=== PATIENT | male | born 1985 | race Caucasian/White ===

== ENCOUNTER 2017-06-02 20:46 | Emergency (ER) | payer OTHER ==
[2017-06-02 20:58] VITALS: BP 126/88
[2017-06-02] MEDS ORDERED: CYCLOBENZAPRINE 10 MG Prepack 2 PO PRN (21:22)
[2017-06-02] MEDS ORDERED: HYDROcod/ACET 5/325 Prepack 6 PO STA (21:22)
[2017-06-02] MEDS ORDERED: IBUPROFEN 800 MG TABLET PO STA (21:22)
--- NOTE | 2017-06-02 21:25 | ED Physician Documentation ---
PD HPI BACK INJURY - Stated complaint Stated Complaint: BACK PX - History obtained from History obtained from: Patient - History of Present Illness Location: Other ("I threw my back out weedeating at home tonight." About 3 hrs ago, felt a pull and now with nonradiating LBP. Worse with sitting and twisting. No weak/numb/tingling legs/groin.) Review of Systems Constitutional: denies: Fever, Chills Nose: denies: Rhinorrhea / runny nose, Congestion Cardiac: denies: Chest pain / pressure, Palpitations Respiratory: denies: Dyspnea, Cough PD PAST MEDICAL HISTORY - Present Medications Home Medications: Ambulatory Orders Medication Instructions Recorded Confirmed Cyclobenzaprine [Flexeril] 10 mg PO TID PRN #20 tablet 06/02/17 HYDROcod/ACETAM 5/325 [[place] 5/325] 1 - 2 ea PO Q6H PRN #15 tablet 06/02/17 Ibuprofen [Motrin] 800 mg PO Q8H PRN #30 tablet 06/02/17 - Allergies Allergies/Adverse Reactions: Allergies Allergy/AdvReac Type Severity Reaction Status Date / Time iron AdvReac Unknown Verified 06/02/17 20:58 PD ED PE NORMAL - Vitals Vital signs reviewed: Yes - General General: Alert and oriented X 3, Other (winces with motion) - Abdomen Abdomen: Soft, Non tender - Back Back: No spinal TTP, Other (TTP paralumbar msk) - Extremities Extremities: Other (The patient has equal and normal Achilles and patellar reflexes bilaterally. Normal sensation in all areas of the legs. Patient denies saddle anesthesia. Normal strength in flexion-extension at the ankles, knees, and flexion of the hips.) - Neuro Neuro: Alert and oriented X 3, Normal speech - Psych Psych: Normal mood, Normal affect Results - Vitals Vitals: Vital Signs - 24 hr 06/02/17 20:54 Temperature 36.8 C Heart Rate 77 Respiratory 17 Rate Blood Pressure 126/88 H O2 Saturation 100 Oxygen O2 Source Room air Departure - Departure Disposition: 01 Home, Self Care Clinical Impression: Muscle spasm of back Condition: Good Record reviewed to determine appropriate education?: Yes Instructions: ED Low Back Pain Injury Prescriptions: Cyclobenzaprine [Flexeril] 10 mg PO TID PRN #20 tablet PRN Reason: Pain Ibuprofen [Motrin] 800 mg PO Q8H PRN #30 tablet PRN Reason: PAIN &/OR FEVER HYDROcod/ACETAM 5/325 [[place] 5/325] 1 - 2 ea PO Q6H PRN #15 tablet PRN Reason: Pain Comments: Call your doctor to arrange a follow-up appointment, make the next available appointment. In the interim, return anytime if worse or if new symptoms develop. Your blood pressure was elevated today on check into the emergency department. This does not mean that you have hypertension, it is a common phenomenon to come to the emergency department and have elevated blood pressure. I recommend that she see her primary care physician within the week to have it rechecked when you are feeling better. Do not drink or drive while taking narcotic pain medication. Note that many narcotic pain relievers also contain Tylenol/acetaminophen. Please ensure that your total dose of acetaminophen from all sources does not exceed 3 g (3000 mg) per day. You may get constipated while on this medication. Take a stool softener such as Colace twice a day while you are on it. Also add an [id number] laxative such as senna or MiraLAX on any day that you do not have a bowel movement. If you received a narcotic pain medication or sedative while in the emergency department, do not drive for the next 24 hours. Forms: Activity restrictions
[2017-06-02] MEDS ORDERED: IBUPROFEN 800 MG TABLET PO ONE (21:31)
[2017-06-02] MEDS ORDERED: HYDROcod/ACET 5/325 Prepack 6 PO ONE (21:31)
[2017-06-02] MEDS ORDERED: CYCLOBENZAPRINE 10 MG Prepack 2 PO ONE (21:31)
== END 2017-06-02 21:39 | disposition home or self-care (01) ==
LOC: ED 20:46
DX: M62.830 Muscle spasm of back (principal); R03.0 Elevated blood-pressure reading, without diagnosis of hypertension
CPT/HCPCS: 99283; A9270

== ENCOUNTER 2017-09-29 09:47 | Emergency (ER) | payer OTHER ==
[2017-09-29 10:06] VITALS: BP 107/67
--- NOTE | 2017-09-29 10:37 | ED Physician Documentation ---
History of Present Illness - Stated complaint Stated Complaint: LEFT ARM INJ/GLF - Chief complaint Chief Complaint: Trauma Ext - Additonal information Additional information: hx from pt 32 male slipped and fell forward onto R FA last night pain and swelling distal radius no other injury still hurts today Review of Systems Musculoskeletal: reports: Extremity pain, Extremity swelling Neurologic: denies: Head injury PD PAST MEDICAL HISTORY - Past Medical History Past Medical History: No Cardiovascular: None Respiratory: None Endocrine/Autoimmune: None GI: None : None HEENT: None Psych: None Musculoskeletal: None Derm: None Other Past Medical History: Back pain - Past Surgical History Past Surgical History: No - Present Medications Home Medications: Ambulatory Orders Medication Instructions Recorded Confirmed Cyclobenzaprine [Flexeril] 10 mg PO TID PRN #20 tablet 06/02/17 09/29/17 HYDROcod/ACETAM 5/325 [[place] 5/325] 1 - 2 ea PO Q6H PRN #15 tablet 06/02/1711/15 Ibuprofen [Motrin] 800 mg PO Q8H PRN #30 tablet 06/02/17 09/29/17 - Allergies Allergies/Adverse Reactions: Allergies Allergy/AdvReac Type Severity Reaction Status Date / Time iron AdvReac Unknown Verified 09/29/17 10:10 - Social History Does the pt smoke?: Yes Smoking Status: Current every day smoker Does the pt drink ETOH?: Yes ETOH Use: Beer Does the pt have substance abuse?: No - Immunizations Immunizations are current?: Yes PD ED PE NORMAL - Vitals Vital signs reviewed: Yes - Extremities Extremities: Other (R FA focal TTP and swelling to distal R radius approx 3 cm proximal to wrist, no wrist pain, MSV intact) Results - Vitals Vitals: Vital Signs - 24 hr 09/29/17 10:02 Temperature 36.9 C Heart Rate 79 Respiratory 18 Rate Blood Pressure 107/67 O2 Saturation 100 Oxygen O2 Source Room air - Rads (name of study) R FA Radiology: See rad report (neg) Departure - Departure Disposition: 01 Home, Self Care Clinical Impression: Contusion of arm, left Qualifiers: Encounter type: initial encounter Qualified Code(s): S40.022A - Contusion of left upper arm, initial encounter Condition: Good Instructions: ED Contusion Upper Ext Follow-Up: DYLON,REZNER H [Primary Care Provider] - Comments: Thankfully the xray does not show a fracture. Wear the SYDNI wrap and apply ice for 20 min at a time to decrease swelling And wear the splint for support at work Motrin and tylenol as needed for pain If still very painful in 2 weeks, please see your PMD for repeat xrays - occasionally a hairline crack cannot be seen on initial xrays but can be seen on xray as the injury heals Forms: Activity restrictions
--- NOTE | 2017-09-29 11:01 | XRAY Preliminary Report ---
Exam: XR FOREARM LT IMPRESSION: Negative left forearm radiography. [facility] SITE ID: [id number]
--- NOTE | 2017-09-29 11:04 | XRAY Report ---
EXAM: LEFT FOREARM RADIOGRAPHY EXAM DATE: 09/29/2017 10:32 AM. CLINICAL HISTORY: Pain. COMPARISON: None. TECHNIQUE: 2 views. FINDINGS: Bones: No fractures or bone lesions. Joints: No effusions or subluxations in the visualized wrist or elbow joints. Soft Tissues: No soft tissue swelling. IMPRESSION: Negative left forearm radiography. [facility] Referring Provider Line: [phone] SITE ID: [id number]
== END 2017-09-29 11:37 | disposition home or self-care (01) ==
LOC: ED 09:47
DX: S50.11XA Contusion of right forearm, initial encounter (principal); W01.0XXA Fall on same level from slipping, tripping and stumbling without subsequent striking against object, initial encounter; F17.200 Nicotine dependence, unspecified, uncomplicated
CPT/HCPCS: 99283

== ENCOUNTER 2019-12-29 21:16 | Emergency (ER) | payer OTHER ==
[2019-12-29 21:29] VITALS: BP 145/99
[2019-12-29 21:46] LABS: BASOPHILS # (AUTO) 0.1 10^3/uL (0.0-0.1); BASOPHILS % (AUTO) 1.2 %; EOSINOPHILS # (AUTO) 0.1 10^3/uL (0.0-0.7); EOSINOPHILS % (AUTO) 0.5 %; HGB - HEMOGLOBIN 12.2 g/dL (14.0-18.0); LYMPHOCYTES # (AUTO) 1.2 10^3/uL (1.5-3.5); MEAN CORPUSCULAR HEMOGLOBIN 20.9 pg (27.0-31.0); MEAN CORPUSCULAR HGB CONC 31.6 g/dL (32.0-36.0); MEAN CORPUSCULAR VOLUME 66.2 fL (80.0-94.0); MEAN PLATELET VOLUME 8.3 fL (7.4-11.4); MONOCYTES # (AUTO) 1.5 10^3/uL (0.0-1.0); MONOCYTES % (AUTO) 14.9 %; NEUTROPHILS # (AUTO) 6.9 10^3/uL (1.5-6.6); NEUTROPHILS % (AUTO) 70.8 %; PLT - PLATELET COUNT 249 10^3/uL (130-450); RED BLOOD COUNT 5.83 10^6/uL (4.70-6.10); RED CELL DISTRIBUTION WIDTH 17.4 % (12.0-15.0); WHITE BLOOD COUNT 9.7 x10^3/uL (4.8-10.8)
[2019-12-29 22:07] LABS: ALBUMIN/GLOBULIN RATIO 1.5 (1.0-2.2); BILIRUBIN,TOTAL 1.6 mg/dL (0.2-1.0); CALCIUM 9.3 mg/dL (8.5-10.3); CREATININE 0.8 mg/dL (0.6-1.2); TOTAL PROTEIN 8.3 g/dL (6.7-8.2)
[2019-12-29 22:19] LABS: PLATELET ESTIMATE, MANUAL NORMAL (130-450,000) (NORMAL); PLATELET MORPHOLOGY NORMAL APPEARANCE (NORMAL)
[2019-12-29] MEDS ORDERED: ONDANSETRON ODT 4 MG TABLET TL STA (22:53)
[2019-12-29] MEDS ORDERED: PANTOPRAZOLE 40 MG TABLET PO STA (22:53)
== END 2019-12-29 23:05 | disposition left against medical advice (07) ==
LOC: ED 21:16
DX: Z53.21 Procedure and treatment not carried out due to patient leaving prior to being seen by health care provider (principal)
CPT/HCPCS: 36415; 80053; 83690; 85025

== ENCOUNTER 2020-07-19 06:58 | Emergency (ER) | payer OTHER ==
--- NOTE | 2020-07-19 07:42 | ED Physician Documentation ---
PD HPI ALTERED MENTAL STATUS - Stated complaint Stated Complaint: TREMORS/STUTTERING - Chief complaint Chief Complaint: General - History obtained from History obtained from: Patient, Family - History of Present Illness Timing - onset: Yesterday Timing - details: Gradual onset, Still present (increased today) Quality / character: Memory Loss (mild forgetful), Other (mostly stuttering of speech and having frequent irregular timing of general body muscle spasticity/twitching). No: Confused, Disoriented Associated symptoms: General weakness. No: Fever, Headache, Stiff neck, Dyspnea, Cough, NVD, Seizure activity Contributing factors: Intoxicated (Next a pint of liquor daily and has done so since age 20. He had one sober. On a detox program for 28 days and started drinking the following day. This was about a year ago. He denies wanting inpatient detox.) Basline status: Alert and oriented X 3, Ambulatory Similar symptoms before: Has not had sx before Recently seen: Not recently seen Review of Systems Constitutional: denies: Fever, Chills Nose: denies: Rhinorrhea / runny nose, Congestion Throat: denies: Sore throat Cardiac: denies: Chest pain / pressure Respiratory: denies: Dyspnea, Cough GI: denies: Abdominal Pain, Nausea, Vomiting, Diarrhea Neurologic: reports: Other (Stuttering speech and having difficulty with some words at times. Content is normal. Is also having general muscle spasms). denies: Focal weakness, Numbness, Confused (He does feel little bit forgetful about recent activity.), Altered mental status, Headache, Head injury, LOC PD PAST MEDICAL HISTORY - Past Medical History Cardiovascular: None Respiratory: Asthma Neuro: None Endocrine/Autoimmune: None GI: None : None HEENT: None Psych: None Musculoskeletal: None Derm: None - Past Surgical History Past Surgical History: No - Present Medications Home Medications: Ambulatory Orders Medication Instructions Recorded Confirmed PHENobarbitaL [Phenobarbital] 30 mg PO BID #12 tablet 07/19/20 Thiamine HCl 100 mg PO DAILY #20 tablet 07/19/20 chlordiazePOXIDE [Librium] 25 mg PO Q6H PRN #25 capsule 07/19/20 - Allergies Allergies/Adverse Reactions: Allergies Allergy/AdvReac Type Severity Reaction Status Date / Time iron AdvReac Unknown Verified 07/19/20 07:14 - Social History Does the pt smoke?: Yes Smoking Status: Current every day smoker Does the pt drink ETOH?: Yes ETOH Use: Beer, Liquor Does the pt have substance abuse?: No - Immunizations Immunizations are current?: Yes PD ED PE NORMAL - Vitals Vital signs reviewed: Yes - General General: Alert and oriented X 3, Well developed/nourished, Other (Seems frustrated at the stuttering. Content of speech is normal. His speech pattern sounds like a true stuttering.) - HEENT HEENT: Atraumatic, Moist mucous membranes, Pharynx benign - Neck Neck: Supple, no meningeal sign, No adenopathy - Cardiac Cardiac: RRR, No murmur - Respiratory Respiratory: Clear bilaterally - Abdomen Abdomen: Normal bowel sounds, Soft, Non tender, Non distended - Back Back: No CVA TTP - Derm Derm: Normal color, Warm and dry - Extremities Extremities: No edema, No calf tenderness / cord - Neuro Neuro: Alert and oriented X 3, butcher all round 2-12 intact, No motor deficit, No sensory deficit, Normal speech, Other (Irregularly timed but frequent general muscle spasticity. It does dampen some with intention.) Eye Opening: Spontaneous Motor: Obeys Commands Verbal: Oriented GCS Score: 15 Results - Vitals Vitals: Vital Signs - 24 hr 07/19/20 07/19/20 07/19/20 07:12 07:22 08:37 Temperature 37.0 C 37.0 C Heart Rate 100 103 H 93 Respiratory 18 17 24 Rate Blood Pressure 139/100 H 146/111 H 127/87 H O2 Saturation 95 99 96 07/19/20 07/19/20 09:54 10:52 Temperature 36.9 C 37.0 C Heart Rate 99 97 Respiratory 18 21 Rate Blood Pressure 122/89 H 119/77 O2 Saturation 96 98 Oxygen O2 Source Room air - Labs Labs: Laboratory Tests 07/19/20 07/19/20 07/19/20 07:40 07:40 08:05 WBC 4.7 L RBC 6.12 H Hgb 13.0 L Hct 39.8 L MCV 65.0 L MCH 21.2 L MCHC 32.7 RDW 17.0 H Plt Count 157 MPV 9.4 Neut # (Auto) Not Reportable Lymph # (Auto) Not Reportable [place] # (Auto) Not Reportable Eos # (Auto) Not Reportable Baso # (Auto) Not Reportable Absolute Nucleated RBC Not Reportable Total Counted 100 Band Neuts % (Manual) 1 Abnorm Lymph % (Manual) 0 Nucleated RBC % Not Reportable Neutrophils # (Manual) 2.7 Lymphocytes # (Manual) 1.2 L Monocytes # (Manual) 0.5 Eosinophils # (Manual) 0.1 Basophils # (Manual) 0.1 Differential Comment MANUAL DIFFERENTIAL Platelet Estimate NORMAL (130-450,000) Platelet Morphology NORMAL APPEARANCE RBC Morph Micro Appear 1+ ANISOCYTOSIS Sodium 138 Potassium 4.2 Chloride 96 L Carbon Dioxide 28 Anion Gap 14.0 H BUN 11 Creatinine 0.9 Estimated GFR (MDRD) 96 Glucose 106 H Calcium 9.3 Magnesium Iron Total Bilirubin 1.6 H AST 239 H ALT 131 H Alkaline Phosphatase 86 Ammonia Total Protein 8.6 H Albumin 5.1 Globulin 3.5 Albumin/Globulin Ratio 1.5 Lipase 49 Vitamin B12 TSH Urine Color DARK YELLOW Urine Clarity CLEAR Urine pH Ur Specific [place] Urine Protein Urine Glucose (UA) NEGATIVE Urine Ketones Urine Occult Blood Urine Nitrite NEGATIVE Urine Bilirubin NEGATIVE Urine Urobilinogen Ur Leukocyte Esterase NEGATIVE Urine RBC None Seen Urine WBC 0-3 Ur Squamous Epith Cells RARE Squamous Urine Bacteria Rare Urine Mucus Moderate Strands Ur Microscopic Review INDICATED Urine Culture Comments NOT INDICATED Urine Opiates Screen NEGATIVE Ur Oxycodone Screen NEGATIVE Urine Methadone Screen NEGATIVE Ur Propoxyphene Screen NEGATIVE Ur Barbiturates Screen NEGATIVE Ur Tricyclics Screen NEGATIVE Ur Phencyclidine Scrn NEGATIVE Ur Amphetamine Screen NEGATIVE U Methamphetamines Scrn NEGATIVE U Benzodiazepines Scrn NEGATIVE Urine Cocaine Screen NEGATIVE U Cannabinoids Screen NEGATIVE Ethyl Alcohol 07/19/20 07/19/20 07/19/20 08:09 08:09 08:09 WBC RBC Hgb Hct MCV MCH MCHC RDW Plt Count MPV Neut # (Auto) Lymph # (Auto) [place] # (Auto) Eos # (Auto) Baso # (Auto) Absolute Nucleated RBC Total Counted Band Neuts % (Manual) Abnorm Lymph % (Manual) Nucleated RBC % Neutrophils # (Manual) Lymphocytes # (Manual) Monocytes # (Manual) Eosinophils # (Manual) Basophils # (Manual) Differential Comment Platelet Estimate Platelet Morphology RBC Morph Micro Appear Sodium Potassium Chloride Carbon Dioxide Anion Gap BUN Creatinine Estimated GFR (MDRD) Glucose Calcium Magnesium 2.2 Iron Total Bilirubin AST ALT Alkaline Phosphatase Ammonia 30.1 Total Protein Albumin Globulin Albumin/Globulin Ratio Lipase Vitamin B12 818 TSH 1.98 Urine Color Urine Clarity Urine pH Ur Specific [place] Urine Protein Urine Glucose (UA) Urine Ketones Urine Occult Blood Urine Nitrite Urine Bilirubin Urine Urobilinogen Ur Leukocyte Esterase Urine RBC Urine WBC Ur Squamous Epith Cells Urine Bacteria Urine Mucus Ur Microscopic Review Urine Culture Comments Urine Opiates Screen Ur Oxycodone Screen Urine Methadone Screen Ur Propoxyphene Screen Ur Barbiturates Screen Ur Tricyclics Screen Ur Phencyclidine Scrn Ur Amphetamine Screen U Methamphetamines Scrn U Benzodiazepines Scrn Urine Cocaine Screen U Cannabinoids Screen Ethyl Alcohol 293.7 07/19/20 08:09 WBC RBC Hgb Hct MCV MCH MCHC RDW Plt Count MPV Neut # (Auto) Lymph # (Auto) [place] # (Auto) Eos # (Auto) Baso # (Auto) Absolute Nucleated RBC Total Counted Band Neuts % (Manual) Abnorm Lymph % (Manual) Nucleated RBC % Neutrophils # (Manual) Lymphocytes # (Manual) Monocytes # (Manual) Eosinophils # (Manual) Basophils # (Manual) Differential Comment Platelet Estimate Platelet Morphology RBC Morph Micro Appear Sodium Potassium Chloride Carbon Dioxide Anion Gap BUN Creatinine Estimated GFR (MDRD) Glucose Calcium Magnesium Iron 263 H Total Bilirubin AST ALT Alkaline Phosphatase Ammonia Total Protein Albumin Globulin Albumin/Globulin Ratio Lipase Vitamin B12 TSH Urine Color Urine Clarity Urine pH Ur Specific [place] Urine Protein Urine Glucose (UA) Urine Ketones Urine Occult Blood Urine Nitrite Urine Bilirubin Urine Urobilinogen Ur Leukocyte Esterase Urine RBC Urine WBC Ur Squamous Epith Cells Urine Bacteria Urine Mucus Ur Microscopic Review Urine Culture Comments Urine Opiates Screen Ur Oxycodone Screen Urine Methadone Screen Ur Propoxyphene Screen Ur Barbiturates Screen Ur Tricyclics Screen Ur Phencyclidine Scrn Ur Amphetamine Screen U Methamphetamines Scrn U Benzodiazepines Scrn Urine Cocaine Screen U Cannabinoids Screen Ethyl Alcohol - Rads (name of study) head CT Radiology: Prelim report reviewed (no acute process), See rad report PD MEDICAL DECISION MAKING - ED course Complexity details: reviewed results, re-evaluated patient (improved symptoms.), considered differential, d/w patient ED course: And this do not really fit with an encephalopathy per se. We can get a CT scan to evaluate for bleeding or mass-effect. I presume metabolic disorder related to his chronic alcoholism. Up-to-date did reference 1 particular disorder related to chronic alcohol that could be some demyelination in the corpus callosum that would give spasticity trouble speaking and altered mentation. Treatment sounds like stopping the alcohol and supportive treatment. I talked with the patient about trying to find detox program. He states he does not want a detox program at this time. He did not feel that that would be helpful right now. He would like medication to help with withdrawal. His symptoms were actually quite improved with IV fluids and thiamine and magnesium. He still had some occasional muscle spasms. He is talking clearly. Departure - Departure Disposition: 01 Home, Self Care Clinical Impression: Muscle spasticity, Alcoholism, Speaking difficulty Alcohol intoxication Qualifiers: Complication of substance-induced condition: with unspecified complication Qualified Code(s): F10.929 - Alcohol use, unspecified with intoxication, unspecified Condition: Stable Record reviewed to determine appropriate education?: Yes Instructions: ED Alcohol Abuse Follow-Up: [facility] [Provider Group] [facility] [Provider Group] [facility] [Provider Group] Prescriptions: chlordiazePOXIDE [Librium] 25 mg PO Q6H PRN #25 capsule PRN Reason: Alcohol Withdrawal PHENobarbitaL [Phenobarbital] 30 mg PO BID #12 tablet Thiamine HCl 100 mg PO DAILY #20 tablet Comments: Stay well-hydrated. Try eating regular nutritious meals regularly. Avoid alcohol. To diminish and avoid the withdrawal symptoms, I prescribed a tapering dose of phenobarbital to take over the next 8 days. Additionally you can use Librium if needed for withdrawal symptoms. Your symptoms today are likely related to chronic alcohol use and its effect on areas of the brain. Particular syndromes can related to demyelination in the brain (an effect of chronic alcohol. are Otherwise Thiamine deficiency can be causing your symptoms, in addition to general nutritional problems. The main treatment will be to stop alcohol use and have good general nutrition. I know that will be a difficult thing. Seek help with AA meetings and social work. The [place] system likely has good treatment programs as well, contact your primary care with them for subsequent follow-up. Alternatively I [place] clinic [place]. Add a thiamine supplement daily and also general multivitamin may be useful as well. Discharge Date/Time: 07/19/20 11:06
[2020-07-19] MEDS ORDERED: SODIUM CHLORIDE 0.9% 1,000 ML IV STA (08:01)
[2020-07-19] MEDS ORDERED: LORazepam 2 MG/ML VIAL IVP STA (08:01)
[2020-07-19] MEDS ORDERED: MAGNESIUM SULFATE 2 GRAM 2 GM/50 ML BAG IV ONE (08:02)
[2020-07-19] MEDS ORDERED: THIAMINE INJ 100 MG in SODIUM CHLORIDE 0.9% 50 ML IV STA ×2 (08:03→09:59)
[2020-07-19 08:04] LABS: BASOPHILS % (AUTO) 1.7 %; EOSINOPHILS % (AUTO) 2.1 %; LYMPHOCYTES % (AUTO) 30.2 %; MEAN CORPUSCULAR HEMOGLOBIN 21.2 pg (27.0-31.0); MEAN CORPUSCULAR HGB CONC 32.7 g/dL (32.0-36.0); MEAN PLATELET VOLUME 9.4 fL (7.4-11.4); MONOCYTES % (AUTO) 13.2 %; NEUTROPHILS % (AUTO) 52.4 %; PLT - PLATELET COUNT 157 10^3/uL (130-450); RED BLOOD COUNT 6.12 10^6/uL (4.70-6.10); WHITE BLOOD COUNT 4.7 x10^3/uL (4.8-10.8)
[2020-07-19 08:08] LABS: ABNORMAL LYMPHS % (MANUAL) 0 %
[2020-07-19 08:12] LABS: ALBUMIN 5.1 g/dL (3.2-5.5); ALBUMIN/GLOBULIN RATIO 1.5 (1.0-2.2); BILIRUBIN,TOTAL 1.6 mg/dL (0.2-1.0); CALCIUM 9.3 mg/dL (8.5-10.3); CREATININE 0.9 mg/dL (0.6-1.2); TOTAL PROTEIN 8.6 g/dL (6.7-8.2)
[2020-07-19 08:14] LABS: MUDS CUTOFF CONCENTRATIONS CUTOFF CONC BELOW:
[2020-07-19 08:25] LABS: MAGNESIUM 2.2 mg/dL (1.7-2.8)
[2020-07-19 08:26] LABS: GLUCOSE, URINE (UA) NEGATIVE (NEGATIVE); LEUKOCYTE ESTERASE, URINE NEGATIVE (NEGATIVE); NITRITE,URINE NEGATIVE (NEGATIVE)
[2020-07-19 08:27] LABS: CLARITY,URINE CLEAR (CLEAR)
[2020-07-19 08:28] LABS: BILIRUBIN,URINE NEGATIVE (NEGATIVE); ICTOTEST,URINE NEGATIVE
[2020-07-19 08:41] LABS: AMPHETAMINE SCREEN,URINE NEGATIVE (NEGATIVE); BACTERIA,URINE Rare /HPF (None Seen); BENZODIAZEPINES SCREEN, URINE NEGATIVE (NEGATIVE); COCAINE SCREEN URINE NEGATIVE (NEGATIVE); METHADONE SCREEN, URINE NEGATIVE (NEGATIVE); METHAMPHETAMINES SCREEN, URINE NEGATIVE (NEGATIVE); MUCUS,URINE Moderate Strands; OPIATE SCREEN, URINE NEGATIVE (NEGATIVE); OXYCODONE SCREEN, URINE NEGATIVE (NEGATIVE); PROPOXYPHENE SCREEN, URINE NEGATIVE (NEGATIVE); RBC,URINE None Seen /HPF (0-5); SQUAMOUS EPITHELIAL CELL,UR RARE Squamous (<= Few); TRICYCLIC ANTIDEPRESSANT,URINE NEGATIVE (NEGATIVE)
[2020-07-19 08:45] LABS: THYROID STIMULATING HORMONE 1.98 uIU/mL (0.34-5.60)
[2020-07-19 08:51] LABS: BAND NEUTROPHILS % (MANUAL) 1 %; BASOPHILS # (MANUAL) 0.1 10^3/uL (0-0.1); BASOPHILS % (MANUAL) 3 %; DIFFERENTIAL COMMENT MANUAL DIFFERENTIAL; EOSINOPHILS # (MANUAL) 0.1 10^3/uL (0-0.7); LYMPHOCYTES # (MANUAL) 1.2 10^3/uL (1.5-3.5); LYMPHOCYTES % (MANUAL) 26 %; MONOCYTES # (MANUAL) 0.5 10^3/uL (0.0-1.0); PLATELET ESTIMATE, MANUAL NORMAL (130-450,000) (NORMAL); PLATELET MORPHOLOGY NORMAL APPEARANCE (NORMAL)
--- NOTE | 2020-07-19 09:11 | CT Report ---
PROCEDURE: HEAD WO INDICATIONS: stuttering speech and body spasms TECHNIQUE: Noncontrast 4.5 mm thick angled axial sections acquired from the foramen magnum to the vertex. For r adiation dose reduction, the following was used: automated exposure control, adjustment of mA and/or kV according to patient size. COMPARISON: None. FINDINGS: Image quality: Diagnostic, with note made of motion artifact. CSF spaces: Basal cisterns are patent. No extra-axial fluid collections. Ventricles are normal in size and shape. Brain: No midline shift. No intracranial masses or hemorrhage. [place]-white matter interface is norm al. Skull and face: Calvarium and visualized facial bones are intact, without suspicious lesions. Sinuses: Visualized sinuses and mastoids are clear. IMPRESSION: Unremarkable intracranial study, without an imaging explanation found for the patient's presenting history. If it would be helpful for clinical management decision making, please consider a dedicated brain MRI for further evaluation (assuming that there is no contraindication). Reviewed by: Rm Alvarado MD on 07/19/2020 8:10 AM VALORIE Approved by: Rm Alvarado MD on 07/19/2020 8:10 AM VALORIE Station ID: [id number]
[2020-07-19] MEDS ORDERED: PHENobarbital 65 MG/ML VIAL IV STA (09:59)
[2020-07-19 10:54] VITALS: BP 119/77
== END 2020-07-19 11:06 | disposition home or self-care (01) ==
LOC: ED 06:58
DX: M62.838 Other muscle spasm (principal); F98.5 Adult onset fluency disorder; F10.929 Alcohol use, unspecified with intoxication, unspecified; F17.200 Nicotine dependence, unspecified, uncomplicated
CPT/HCPCS: 36415; 70450; 80306; 80320; 81001; 82140; 82607; 83540; 83690; 83735; 96365; 96368; 96375; 99284; J2060; J3411; J7040; 80053; 81003; 84425; 84443; 85025; 87086

== ENCOUNTER 2021-03-20 10:48 | Emergency (ER) | payer OTHER ==
[2021-03-20 11:26] LABS: BILIRUBIN,URINE NEGATIVE (NEGATIVE); GLUCOSE, URINE (UA) NEGATIVE (NEGATIVE); KETONES,URINE (UA) NEGATIVE (NEGATIVE); LEUKOCYTE ESTERASE, URINE NEGATIVE (NEGATIVE); NITRITE,URINE NEGATIVE (NEGATIVE); OCCULT BLOOD,URINE NEGATIVE (NEGATIVE); PROTEIN,URINE TRACE mg/dL (NEGATIVE); UROBILINOGEN,URINE 1 (NORMAL) E.U./dL (NORMAL)
[2021-03-20 11:27] LABS: CLARITY,URINE CLEAR (CLEAR)
[2021-03-20 11:46] LABS: BASOPHILS # (AUTO) 0.1 10^3/uL (0.0-0.1); BASOPHILS % (AUTO) 0.8 %; EOSINOPHILS # (AUTO) 0.1 10^3/uL (0.0-0.7); EOSINOPHILS % (AUTO) 2.3 %; HCT - HEMATOCRIT 40.6 % (42.0-52.0); HGB - HEMOGLOBIN 12.5 g/dL (14.0-18.0); LYMPHOCYTES # (AUTO) 1.3 10^3/uL (1.5-3.5); MEAN CORPUSCULAR HEMOGLOBIN 19.7 pg (27.0-31.0); MEAN CORPUSCULAR HGB CONC 30.8 g/dL (32.0-36.0); MEAN CORPUSCULAR VOLUME 63.9 fL (80.0-94.0); MEAN PLATELET VOLUME 8.4 fL (7.4-11.4); MONOCYTES # (AUTO) 0.6 10^3/uL (0.0-1.0); MONOCYTES % (AUTO) 10.2 %; NEUTROPHILS # (AUTO) 4.1 10^3/uL (1.5-6.6); NEUTROPHILS % (AUTO) 65.4 %; PLT - PLATELET COUNT 210 10^3/uL (130-450); RED BLOOD COUNT 6.35 10^6/uL (4.70-6.10); RED CELL DISTRIBUTION WIDTH 18.3 % (12.0-15.0); WHITE BLOOD COUNT 6.2 x10^3/uL (4.8-10.8)
[2021-03-20 11:56] LABS: ALBUMIN 4.9 g/dL (3.2-5.5); ALBUMIN/GLOBULIN RATIO 1.4 (1.0-2.2); BILIRUBIN,TOTAL 2.6 mg/dL (0.2-1.0); CALCIUM 9.4 mg/dL (8.5-10.3); POTASSIUM 3.2 mmol/L (3.5-5.0); TOTAL PROTEIN 8.4 g/dL (6.7-8.2)
[2021-03-20] MEDS ORDERED: ONDANSETRON 4 MG/2 ML VIAL IVP STA (12:49)
[2021-03-20] MEDS ORDERED: FOLIC ACID INJ 1 MG, THIAMINE INJ 100 MG, MAGNESIUM SULFATE 2 GM, MULTIVITAMIN 10 ML in... IV STA ×5 (12:49)
[2021-03-20] MEDS ORDERED: SODIUM CHLORIDE 0.9% 1,000 ML IV STA (12:50)
[2021-03-20] MEDS ORDERED: FAMOTIDINE 20 MG/2 ML VIAL IVP STA (12:50)
[2021-03-20 13:31] VITALS: BP 141/81
--- NOTE | 2021-03-20 13:43 | ED Physician Documentation ---
History of Present Illness - Stated complaint Stated Complaint: STOMACH PX - Chief complaint Chief Complaint: Abd Pain - History obtained from History obtained from: Patient - Additonal information Additional information: 36-year-old man with past medical history of alcohol abuse presents with epigastric pain for the past week migrating to the generalized abdominal area, intermittent, aching quality, associated with nonbloody nonbilious nausea and vomiting as well as nonbloody diarrhea. He has been taking and decreased oral over the past 2 to 3 days. He does endorse drinking 4 beers on that made him feel better. endorses prior etoh abuse but denies daily drinking at present. no prior history of gastritis or stomach issues. denies fever Review of Systems Ten Systems: 10 systems reviewed and negative Constitutional: denies: Fever GI: reports: Abdominal Pain, Nausea, Vomiting, Diarrhea : denies: Dysuria Musculoskeletal: denies: Back pain PD PAST MEDICAL HISTORY - Past Medical History Past Medical History: Yes Cardiovascular: None Respiratory: Asthma Neuro: None Endocrine/Autoimmune: None GI: None : None HEENT: None Psych: None Musculoskeletal: None Derm: None - Past Surgical History Past Surgical History: No - Present Medications Home Medications: Ambulatory Orders Medication Instructions Recorded Confirmed Ondansetron Odt [Zofran Odt] 4 mg TL Q6H PRN #10 tablet 03/20/21 - Allergies Allergies/Adverse Reactions: Allergies Allergy/AdvReac Type Severity Reaction Status Date / Time iron AdvReac Unknown Verified 03/20/21 11:04 - Social History Does the pt smoke?: Yes Smoking Status: Current every day smoker Does the pt drink ETOH?: Yes ETOH Use: Beer Does the pt have substance abuse?: No - Immunizations Immunizations are current?: Yes PD ED PE NORMAL - Vitals Vital signs reviewed: Yes - General General: Alert and oriented X 3, No acute distress, Well developed/nourished - HEENT HEENT: Atraumatic, PERRL, EOMI - Neck Neck: Supple, no meningeal sign - Cardiac Cardiac: RRR - Respiratory Respiratory: No respiratory distress, Clear bilaterally - Abdomen Abdomen: Non tender, Non distended, Other (discomfort to epigastric palpation) - Derm Derm: Normal color - Extremities Extremities: No deformity - Neuro Neuro: Alert and oriented X 3 - Psych Psych: Normal mood, Normal affect Results - Vitals Vitals: Vital Signs - 24 hr 05/22/21 05/22/21 05/22/21 10:55 11:38 13:30 Temperature 36.5 C Heart Rate 84 66 67 Respiratory 17 16 14 Rate Blood Pressure 171/117 H 142/99 H 141/81 H O2 Saturation 100 100 100 03/20/21 14:22 Temperature 37.3 C Heart Rate 71 Respiratory 18 Rate Blood Pressure 141/81 H O2 Saturation 100 Oxygen O2 Source Room air - Labs Labs: Laboratory Tests 03/20/21 03/20/21 03/20/21 11:21 11:25 11:25 WBC 6.2 RBC 6.35 H Hgb 12.5 L Hct 40.6 L MCV 63.9 L MCH 19.7 L MCHC 30.8 L RDW 18.3 H Plt Count 210 MPV 8.4 Neut # (Auto) 4.1 Lymph # (Auto) 1.3 L [place] # (Auto) 0.6 Eos # (Auto) 0.1 Baso # (Auto) 0.1 Absolute Nucleated RBC 0.00 Nucleated RBC % 0.0 Sodium 133 L Potassium 3.2 L Chloride 92 L Carbon Dioxide 28 Anion Gap 13.0 BUN 17 Creatinine 1.0 Estimated GFR (MDRD) 85 L Glucose 93 Calcium 9.4 Total Bilirubin 2.6 H AST 66 H ALT 53 Alkaline Phosphatase 96 Total Protein 8.4 H Albumin 4.9 Globulin 3.5 Albumin/Globulin Ratio 1.4 Lipase 38 Urine Color DARK YELLOW Urine Clarity CLEAR Urine pH 7.0 Ur Specific [place] 1.010 Urine Protein TRACE Urine Glucose (UA) NEGATIVE Urine Ketones NEGATIVE Urine Occult Blood NEGATIVE Urine Nitrite NEGATIVE Urine Bilirubin NEGATIVE Urine Urobilinogen 1 (NORMAL) Ur Leukocyte Esterase NEGATIVE Ur Microscopic Review NOT INDICATED Urine Culture Comments NOT INDICATED PD MEDICAL DECISION MAKING - ED course ED course: 36-year-old man presents with symptoms consistent with viral gastroenteritis versus gastroesophageal reflux. Symptoms controlled in the emergency department and he is tolerating p.o. sandwich. Prescription given for antinausea medication. He will follow up with the primary doctor this week. Return precautions given. Departure - Departure Disposition: 01 Home, Self Care Clinical Impression: Viral gastroenteritis Condition: Good Instructions: ED Gastroenteritis Viral Follow-Up: Soledad Mares MD [Provider Admit Priv/Credential] - Edward Armstrong MD [Provider Admit Priv/Credential] - Wendy Holden ARNP [Physician No Access] - Niesha Escobar PA-C [Physician No Access] - Prescriptions: Ondansetron Odt [Zofran Odt] 4 mg TL Q6H PRN #10 tablet PRN Reason: Nausea / Vomiting Comments: You were seen in the emergency department for nausea and abdominal pain. Your lab work did not show any concerning findings. Now that you are feeling better, have good have you follow-up with a primary doctor and drink lots of fluids and get lots of rest. You can take the prescribed antinausea medication as needed. Return to the emergency department if you have any worsening symptoms or other concerns. Discharge Date/Time: 03/20/21 14:24
== END 2021-03-20 14:24 | disposition home or self-care (01) ==
LOC: ED 10:48
DX: A08.4 Viral intestinal infection, unspecified (principal); F17.200 Nicotine dependence, unspecified, uncomplicated
CPT/HCPCS: 36415; 80053; 81003; 83690; 85025; 96374; 96375; 99284; J3411; 81001; 87086

== ENCOUNTER 2021-12-21 22:17 | Emergency (ER) | payer OTHER ==
--- NOTE | 2021-12-21 23:10 | ED Physician Documentation ---
PD HPI MALE - Stated complaint Stated Complaint: MALE - Chief complaint Chief Complaint: UTI - History obtained from History obtained from: Patient - History of Present Illness Timing - onset: Yesterday Timing - details: Gradual onset Associated symptoms: No: Unable to urinate Similar symptoms before: Has not had sx before Recently seen: Not recently seen - Additional information Additional information: patient states having problems urinating. havent urinated for at least twenty-four hours (per patient). Patient feels urge to urinate with suprapubic pressure but says he cannot urinate at all for approximately past 24 hours. Review of Systems Constitutional: reports: Reviewed and negative Cardiac: reports: Reviewed and negative Respiratory: reports: Reviewed and negative GI: reports: Reviewed and negative : reports: Unable to Void. denies: Dysuria, Frequency, Incontinent Musculoskeletal: denies: Back pain PD PAST MEDICAL HISTORY - Past Medical History Past Medical History: Yes Cardiovascular: None Respiratory: Asthma Neuro: None Endocrine/Autoimmune: None GI: None : None HEENT: None Psych: None Musculoskeletal: None Derm: None - Past Surgical History Past Surgical History: No - Present Medications Home Medications: Ambulatory Orders Medication Instructions Recorded Confirmed Albuterol Sulf [Ventolin Hfa 2 puffs INH Q4HR PRN 12/21/21 12/21/21 Inhaler] - Allergies Allergies/Adverse Reactions: Allergies Allergy/AdvReac Type Severity Reaction Status Date / Time iron AdvReac Unknown Verified 12/21/21 22:27 - Social History Does the pt smoke?: Yes Smoking Status: Current every day smoker Does the pt drink ETOH?: Yes Does the pt have substance abuse?: No - Immunizations Immunizations are current?: Yes PD ED PE NORMAL - Vitals Vital signs reviewed: Yes - General General: Alert and oriented X 3, No acute distress, Well developed/nourished - Cardiac Cardiac: RRR, No murmur - Respiratory Respiratory: No respiratory distress, Clear bilaterally - Abdomen Abdomen: Normal bowel sounds, Soft, Non tender, Non distended - Back Back: No CVA TTP Results - Vitals Vitals: Oxygen O2 Source Room air - Labs Labs: Laboratory Tests 12/21/21 12/21/21 00:00 00:00 WBC 7.5 RBC 7.19 H Hgb 14.7 Hct 45.5 MCV 63.3 L MCH 20.4 L MCHC 32.3 RDW 18.1 H Plt Count 356 MPV 9.0 Neut # (Auto) 4.0 Lymph # (Auto) 2.4 [place] # (Auto) 0.9 Eos # (Auto) 0.1 Baso # (Auto) 0.1 Absolute Nucleated RBC 0.00 Nucleated RBC % 0.0 Manual Slide Review Indicated Platelet Estimate NORMAL (130-450,000) RBC Morph Micro Appear 1+ TARGET CELLS Sodium 134 L Potassium 3.9 Chloride 92 L Carbon Dioxide 24 Anion Gap 18.0 H BUN 11 Creatinine 0.8 Estimated GFR (MDRD) 109 Glucose 98 Calcium 9.1 Total Bilirubin 1.6 H AST 44 H ALT 27 Alkaline Phosphatase 72 Total Protein 8.2 Albumin 4.7 Globulin 3.5 Albumin/Globulin Ratio 1.3 Lipase 35 Acetaminophen 21 Ethyl Alcohol 205.4 PD MEDICAL DECISION MAKING - ED course Complexity details: reviewed results, re-evaluated patient, considered differential, d/w patient ED course: GFR is 109 with normal BUN and creatinine. A urine sample is not obtained during this ED stay; he says has not been able to urinate, despite urge, for approximately 24 hours. However, he urinates early in ED stay but says he was not told of the need for UA sample and thus this is not obtained. Bladder scan by ED RN is less than 400cc. Differential would include UTI, but no urine sample for testing and symptoms are not strongly s/o UTI. I discussed test results w/patient. He is comfortable with d/c at this time, understands that he needs to follow up with primary care provider, return if worse. Departure - Departure Disposition: 01 Home, Self Care Clinical Impression: Dysuria Condition: Good Instructions: ED Dysuria Uncertain Cause Follow-Up: ROMULO OSBORNE [Primary Care Provider] - Comments: The cause of your symptoms is unclear at this time. Unfortunately, without a urine sample, it cannot be determined whether or not you have a urinary tract infection. As we discussed, some medications (including ezrv-nth-nuoslvt medications) can cause or contribute to difficulty urinating. Antihistamines would be one potential example, and the Tylenol PM usually contains diphenhydramine (an antihistamine). I would recommend you avoid antihistamines and decongestants until your urinary issue has resolved. Please follow up with your primary care provider if you continue to have symptoms, and return to the emergency department if you feel your symptoms are worsening Discharge Date/Time: 12/22/21 03:05
[2021-12-21] MEDS ORDERED: SODIUM CHLORIDE 0.9% 1,000 ML IV STA (23:37)
[2021-12-22 00:14] LABS: BASOPHILS # (AUTO) 0.1 10^3/uL (0.0-0.1); BASOPHILS % (AUTO) 0.9 %; EOSINOPHILS # (AUTO) 0.1 10^3/uL (0.0-0.7); EOSINOPHILS % (AUTO) 1.9 %; HCT - HEMATOCRIT 45.5 % (42.0-52.0); HGB - HEMOGLOBIN 14.7 g/dL (14.0-18.0); LYMPHOCYTES # (AUTO) 2.4 10^3/uL (1.5-3.5); LYMPHOCYTES % (AUTO) 31.4 %; MEAN CORPUSCULAR HEMOGLOBIN 20.4 pg (27.0-31.0); MEAN CORPUSCULAR HGB CONC 32.3 g/dL (32.0-36.0); MEAN CORPUSCULAR VOLUME 63.3 fL (80.0-94.0); MONOCYTES # (AUTO) 0.9 10^3/uL (0.0-1.0); MONOCYTES % (AUTO) 12.3 %; NEUTROPHILS % (AUTO) 53.1 %; PLT - PLATELET COUNT 356 10^3/uL (130-450); RED BLOOD COUNT 7.19 10^6/uL (4.70-6.10); RED CELL DISTRIBUTION WIDTH 18.1 % (12.0-15.0); WHITE BLOOD COUNT 7.5 x10^3/uL (4.8-10.8)
[2021-12-22 00:17] LABS: SLIDE REVIEW? Indicated
[2021-12-22 00:25] LABS: ALBUMIN 4.7 g/dL (3.2-5.5); ALBUMIN/GLOBULIN RATIO 1.3 (1.0-2.2); BILIRUBIN,TOTAL 1.6 mg/dL (0.2-1.0); CALCIUM 9.1 mg/dL (8.5-10.3); CREATININE 0.8 mg/dL (0.6-1.2); ETOH - ETHANOL 205.4 mg/dL; POTASSIUM 3.9 mmol/L (3.5-5.0); TOTAL PROTEIN 8.2 g/dL (6.7-8.2)
[2021-12-22 00:32] LABS: PLATELET ESTIMATE, MANUAL NORMAL (130-450,000) (NORMAL)
[2021-12-22] MEDS ORDERED: SODIUM CHLORIDE 0.9% 1,000 ML IV STA (02:12)
[2021-12-22 03:03] VITALS: BP 133/89
== END 2021-12-22 03:05 | disposition home or self-care (01) ==
LOC: ED 22:17
DX: R30.0 Dysuria (principal); F17.200 Nicotine dependence, unspecified, uncomplicated
CPT/HCPCS: 36415; 51798; 80053; 80307; 80320; 83690; 85025; 99282; 99283

== ENCOUNTER 2022-03-18 20:37 | Emergency (ER) | payer OTHER ==
--- NOTE | 2022-03-18 21:23 | ED Physician Documentation ---
History of Present Illness - Stated complaint Stated Complaint: LT SIDE BODY PX - Chief complaint Chief Complaint: General - History obtained from History obtained from: Patient - History of Present Illness Timing: How many days ago (1-2) Pain level now: 8 Improved by: rest Worsened by: movement, palpation - Additonal information Additional information: c/o 1-2 days of left low back pain without injury or inciting event; the pain has gradually intensified and radiates to his left hip and down the LLE as well as up to left shoulder. Has been taking tylenol without adequate relief. Denies h/o similar symptoms. He notes mild paresthesias of LLE>LUE Review of Systems Constitutional: reports: Reviewed and negative Cardiac: reports: Reviewed and negative Respiratory: reports: Reviewed and negative GI: reports: Reviewed and negative : reports: Reviewed and negative Skin: denies: Rash Musculoskeletal: reports: Back pain. denies: Neck pain Neurologic: reports: Numbness (paresthesias). denies: Generalized weakness, Focal weakness, Headache PD PAST MEDICAL HISTORY - Past Medical History Cardiovascular: None Respiratory: Asthma Neuro: None Endocrine/Autoimmune: None GI: None : None HEENT: None Psych: None Musculoskeletal: None Derm: None - Past Surgical History Past Surgical History: No - Present Medications Home Medications: Ambulatory Orders Medication Instructions Recorded Confirmed Albuterol Sulf [Ventolin Hfa 2 puffs INH Q4HR PRN 12/21/21 12/21/21 Inhaler] Cyclobenzaprine [Flexeril] 10 mg PO TID PRN #20 tablet 03/19/22 HYDROcod/ACETAM 5/325 [[place] 5/325] 1 - 2 tablet PO Q6H PRN #14 tablet 03/19/22 - Allergies Allergies/Adverse Reactions: Allergies Allergy/AdvReac Type Severity Reaction Status Date / Time iron AdvReac Unknown Verified 03/18/22 20:46 - Social History Does the pt smoke?: Yes Smoking Status: Current every day smoker Does the pt drink ETOH?: Yes Does the pt have substance abuse?: No - Immunizations Immunizations are current?: Yes PD ED PE NORMAL - Vitals Vital signs reviewed: Yes - General General: Alert and oriented X 3, No acute distress, Well developed/nourished - Neck Neck: No bony TTP - Cardiac Cardiac: RRR, No murmur - Respiratory Respiratory: No respiratory distress, Clear bilaterally - Abdomen Abdomen: Soft, Non tender - Back Back: No CVA TTP, Other (TTP midline lumbar spine, bilateral (L>R) paralumbar regions. ) - Derm Derm: Normal color, Warm and dry, No rash - Neuro Neuro: No motor deficit (5/5 biltaeral dorsi/plantar flexion, 5/5 bilateral left lift (hip flexion) although he reports exacerbation of pain with movement /flexion of left hip), No sensory deficit (LTS intact BUE/BLE) Results - Vitals Vitals: Oxygen O2 Source Room air - Rads (name of study) lumbar xrays Radiology: Prelim report reviewed, See rad report pelvis Radiology: Prelim report reviewed, See rad report PD MEDICAL DECISION MAKING - ED course Complexity details: reviewed results, re-evaluated patient, considered differential, d/w patient ED course: atraumatic pain that started 1-2 days ago in lower back and has increased in intensity and area of involvement. His chief complaint seems to be low back pain to hip and down LLE, with mild paresthesias. Hip X-rays are unremarkable. Transitional anatomy of LS junction and mild DJD on lumbar X-rays could be causative or contributing factor, although this would not explain involvement of left shoulder and arm. He denies any other symptoms that would suggest emergent etiology and / or need for further emergent testing at this time; specifically, no signs/symptoms to suggest SLIDE MAKER cause, thoracic/cardiac pathology, abdominal pathology. He is given toradol and flexeril in ED prior to xrays; on reevaluation he says this did not provide adequate relief and thus he is given Vicodin in ED with Rx for same , as well as flexeril, eprescribed. He says he does not currently have a PMD. I note that external medication records indicate a prescription was filled today for Chantix prescribed by Dr. Terrell Parrish, but patient says he was unaware of this. I am prescribing a short course of short-acting opioid pain medication for this patient. I have reviewed the patients ARCHEOLOGIST and no concerning findings were noted. I have discussed that the opioids are for short term therapy only, and will not be refilled from the ED Departure - Departure Disposition: 01 Home, Self Care Clinical Impression: Low back pain Qualifiers: Chronicity: acute Back pain laterality: left Sciatica presence: with sciatica Sciatica laterality: sciatica of left side Qualified Code(s): M54.42 - Lumbago with sciatica, left side Condition: Good Instructions: ED Sciatica Prescriptions: Cyclobenzaprine [Flexeril] 10 mg PO TID PRN #20 tablet PRN Reason: Spasms HYDROcod/ACETAM 5/325 [[place] 5/325] 1 - 2 tablet PO Q6H PRN #14 tablet PRN Reason: Pain Comments: Prescriptions for hydrocodone with acetaminophen (vicodin) and cyclobenzaprine (flexeril) have been electronically submitted to [facility] in [place]. Follow up with your primary care provider in 3-5 days for reevaluation. I am prescribing a short course of narcotic pain medication for you. These are potentially dangerous and addictive medications that should be used carefully. These medications may constipate you. Take an hqte-obc-cnnayiz stool softener (docusate) twice daily with plenty of water while taking these medications. If you go 24 hours without a bowel movement, take lylh-auq-rmfgsgr miralax, per package instructions. Do not drink or drive while taking these medications. If you received narcotic or sedating medications while in the emergency department, do not drive for 24 hours. Store this medication in a safe, secure place and out of reach of children. It is a violation of federal law to give or sell this medication to another person or to use in a manner other than prescribed. The ED will not refill narcotic prescriptions, including prescriptions lost or stolen. To dispose of unwanted medications: 1. [facility] at [address] in [place] has a medication drop box. They accept prescription medications (in pill form) Monday through Monday 9:00 a.m. to 5:00 p.m. 2. The [facility] accepts prescription medications (in pill form only) for disposal year round. Call for more information. 3. Contact the [facility] for the next [facility] sponsored prescription drug collection event. , [phone], or [phone]; Discharge Date/Time: 03/19/22 00:46
[2022-03-18] MEDS ORDERED: KETOROLAC 30 MG/ML VIAL IVP STA (21:38)
[2022-03-18] MEDS ORDERED: CYCLOBENZAPRINE 10 MG TABLET PO STA (21:39)
--- NOTE | 2022-03-18 23:59 | XRAY Report ---
PROCEDURE: Hip w/Pelvis 1V LT INDICATIONS: left hip pain TECHNIQUE: AP pelvis with lateral view of the left hip. COMPARISON: None. FINDINGS: Bones: No fractures or dislocations. There is mild axial joint space narrowing in the hips bilatera lly. Pelvic ring appears intact. No suspicious bony lesions. Soft tissues: The visualized bowel gas pattern is normal. No suspicious soft tissue calcifications. IMPRESSION: 1. No fracture or dislocation. Reviewed by: Yefri Farnsworth MD on 03/19/2022 12:01 AM PDT Approved by: Yefri Farnsworth MD on 03/19/2022 12:01 AM PDT Station ID: [id number]
--- NOTE | 2022-03-19 00:02 | XRAY Report ---
PROCEDURE: Lumbar Spine 2 View INDICATIONS: low back pain, tenderness TECHNIQUE: 2 views of the lumbar spine were acquired. COMPARISON: None. FINDINGS: Bones: 5 dsa-ulp-jjfzrjz vertebrae are present. There is transitional anatomy at the lumbosacral armond ction There is preserved bony alignment. There is mild multilevel degenerative disc disease in the u pper lumbar spine. No vertebral body compression fractures. No suspicious bony lesions. Soft tissues: Overlying bowel gas pattern is normal. No suspicious soft tissue calcifications. IMPRESSION: 1. Transitional anatomy at the lumbosacral junction. 2. Mild degenerative disc disease. Reviewed by: Yefri Farnsworth MD on 03/19/2022 12:04 AM PDT Approved by: Yefri Farnsworth MD on 03/19/2022 12:04 AM PDT Station ID: [id number]
[2022-03-19] MEDS ORDERED: HYDROcod/ACETAM 5/325 MG TABLET PO STA (00:28)
[2022-03-19 00:37] VITALS: BP 117/87
== END 2022-03-19 00:46 | disposition home or self-care (01) ==
LOC: ED 20:37
DX: M54.42 Lumbago with sciatica, left side (principal); F17.200 Nicotine dependence, unspecified, uncomplicated
CPT/HCPCS: 72100; 73501; 96374; 99284; A9270

== ENCOUNTER 2023-08-17 12:32 | Outpatient (CLI) | payer OTHER ==
--- NOTE | 2023-08-17 15:16 | XRAY Report ---
PROCEDURE: Chest 2 View X-Ray INDICATIONS: ASTHMA TECHNIQUE: 2 views of the chest were acquired. COMPARISON: None. FINDINGS: Surgical changes and devices: None. Lungs and pleura: No pleural effusions or pneumothorax. Lungs are clear. Mediastinum: Mediastinal contours appear normal. Heart size is normal. Bones and chest wall: No suspicious bony lesions. Overlying soft tissues appear unremarkable. IMPRESSION: No acute cardiopulmonary process. Reviewed by: Kiara Jensen MD, PhD on 08/17/2023 3:15 PM PDT Approved by: Kiara Jensen MD, PhD on 08/17/2023 3:15 PM PDT Station ID: [id number]
== END 2023-08-17 12:33 | disposition home or self-care (01) ==
LOC: DI.S 12:32
PROVIDERS: ATTEND Nurse Practitioner Family
DX: J45.50 Severe persistent asthma, uncomplicated (principal)

== ENCOUNTER 2024-04-01 22:25 | Emergency (ER) | payer OTHER ==
[2024-04-01 22:50] VITALS: BP 139/89; O2SAT 100
[2024-04-01] MEDS ORDERED: SODIUM CHLORIDE 0.9% 1,000 ML IV STA (22:59)
--- NOTE | 2024-04-01 23:18 | ED Physician Documentation ---
ED Addendum - Addendum Addendum: 04/01/24 23:18 This patient left before I was able to evaluate him. Based on the ED child development specialist note, I had put in orders for blood tests and an IV. Patient left before these were able to be undertaken, as well.
== END 2024-04-01 23:05 | disposition left against medical advice (07) ==
LOC: ED 22:25
DX: Z53.21 Procedure and treatment not carried out due to patient leaving prior to being seen by health care provider (principal)
CPT/HCPCS: 80053; 82077; 83690; 85025; 85610

== ENCOUNTER 2024-06-04 13:45 | Outpatient (CLI) | payer OTHER | END 2024-06-04 13:46 | disposition critical access hospital (66) | LOC: EMS 13:45 | DX: R10.11 Right upper quadrant pain (principal); R10.12 Left upper quadrant pain; R10.812 Left upper quadrant abdominal tenderness; R10.811 Right upper quadrant abdominal tenderness; R11.0 Nausea; R19.7 Diarrhea, unspecified; R61 Generalized hyperhidrosis; R45.851 Suicidal ideations; F10.20 Alcohol dependence, uncomplicated | CPT/HCPCS: A0425; A0429 ==

== ENCOUNTER 2024-06-04 14:19 | Emergency (ER) | payer OTHER ==
--- NOTE | 2024-06-04 14:35 | ED Physician Documentation ---
History of Present Illness - Stated complaint Stated Complaint: WITHDRAWAL - Chief complaint Chief Complaint: General - Additonal information Additional information: . m 39-year-old gentleman here with concerns for alcohol withdrawal. Patient states he has been binge drinking every day for the last couple of weeks his life has been going all sideways lately, he had flown his elderly dad who is dialysis dependent out from the [facility] to take care of him after the of the patient's brother. The patient neglected to take him to dialysis dad was admitted to [facility] and [facility] was told he be charged with elder abuse. That sentiment dual bit of a spiral. 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 He states he drinks 12 beers per day. Last drink was last night at 830. He has had mild shakes before and never had seizures or DTs. An ideal state he would like to manage his symptoms and try to go back to work. Review of Systems Constitutional: denies: Fever, Chills Eyes: denies: Loss of vision Neurologic: reports: Other (No tremor). denies: Seizure, Headache PD PAST MEDICAL HISTORY - Past Medical History Past Medical History: Yes Cardiovascular: None Respiratory: Asthma Neuro: None Endocrine/Autoimmune: None GI: None : None HEENT: None Psych: None Musculoskeletal: None Derm: None - Past Surgical History Past Surgical History: No - Present Medications Home Medications: Ambulatory Orders Medication Instructions Recorded Confirmed Albuterol Sulf [Ventolin Hfa 2 puffs INH Q4HR PRN 12/21/21 12/21/21 Inhaler] Cyclobenzaprine [Flexeril] 10 mg PO TID PRN #20 tablet 03/19/22 HYDROcod/ACETAM 5/325 [[place] 5/325] 1 - 2 tablet PO Q6H PRN #14 tablet 03/19/22 - Allergies Allergies/Adverse Reactions: Allergies Allergy/AdvReac Type Severity Reaction Status Date / Time iron AdvReac Unknown Verified 06/04/24 14:25 - Social History Does the pt smoke?: Yes Smoking Status: Current every day smoker Does the pt drink ETOH?: Yes ETOH Use: Beer Does the pt have substance abuse?: No - Immunizations Immunizations are current?: Yes - POLST Patient has POLST: No PD ED PE NORMAL - Vitals Vital signs reviewed: Yes - General General: Alert and oriented X 3, No acute distress - HEENT HEENT: Atraumatic, Pharynx benign - Neck Neck: Supple, no meningeal sign, No JVD - Cardiac Cardiac: RRR, No murmur - Respiratory Respiratory: No respiratory distress - Abdomen Abdomen: Normal bowel sounds, Soft - Derm Derm: Normal color - Extremities Extremities: No deformity - Neuro Neuro: Alert and oriented X 3, manager e learning 2-12 intact, No motor deficit, No sensory deficit - Free text exam Free text exam: No tremor. Results - Vitals Vitals: Vital Signs - 24 hr 06/04/24 14:25 Temperature 36.8 C Heart Rate 86 Respiratory 16 Rate Blood Pressure 129/96 H O2 Saturation 98 Oxygen O2 Source Room air - Labs Labs: Laboratory Tests 06/04/24 06/04/24 06/04/24 14:43 14:43 15:00 WBC 8.8 RBC 5.57 Hgb 11.4 L Hct 36.5 L MCV 65.5 L MCH 20.5 L MCHC 31.2 L RDW 17.2 H Plt Count 231 MPV 8.4 Neut # (Auto) 6.7 H Lymph # (Auto) 1.1 L [place] # (Auto) 0.9 Eos # (Auto) 0.0 Baso # (Auto) 0.1 Absolute Nucleated RBC 0.05 Nucleated RBC % 0.6 Manual Slide Review Indicated RBC Morph Micro Appear 2+ MICROCYTOSIS Sodium 130 L Potassium 4.1 Chloride 94 L Carbon Dioxide 25 Anion Gap 11.0 BUN 16 Creatinine 0.7 Estimated GFR (MDRD) 126 Glucose 80 Calcium 9.8 Total Bilirubin 2.1 H AST 63 H ALT 45 Alkaline Phosphatase 98 Total Protein 7.3 Albumin 4.4 Globulin 2.9 Albumin/Globulin Ratio 1.5 Nasal Adenovirus (PCR) NOT DETECTED Nasal B. parapertussis DNA (PCR) NOT DETECTED Nasal Coronavir 229E PCR NOT DETECTED Nasal Coronavir HKU1 PCR NOT DETECTED Nasal Coronavir NL63 PCR NOT DETECTED Nasal Coronavir OC43 PCR NOT DETECTED Nasal Enterovir/Rhinovir PCR NOT DETECTED Nasal Influenza B PCR NOT DETECTED Nasal Influenza A PCR NOT DETECTED Nasal Parainfluen 1 PCR NOT DETECTED Nasal Parainfluen 2 PCR NOT DETECTED Nasal Parainfluen 3 PCR NOT DETECTED Nasal Parainfluen 4 PCR NOT DETECTED Nasal RSV (PCR) NOT DETECTED Nasal B.pertussis DNA PCR NOT DETECTED Nasal C.pneumoniae (PCR) NOT DETECTED Ancelmo Human Metapneumo PCR NOT DETECTED Nasal M.pneumoniae (PCR) NOT DETECTED Nasal SARS-CoV-2 (PCR) DETECTED A Ethyl Alcohol < 10.0 PD Medical Decision Making - ED course ED course: Patient is given IV fluids. His baseline labs are within normal limits except modest elevation bili 2.1. His CIWA score is 4. With a please fucking read by CT scan he has URI symptoms and his has COVID. His COVID swab not unexpectedly returns positive. Will give him 1 dose of Ativan for here. 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 Departure - Departure Disposition: 01 Home, Self Care Clinical Impression: COVID-19 Alcohol dependence Qualifiers: Substance use status: in withdrawal Complication of substance-induced condition: uncomplicated Qualified Code(s): F10.230 - Alcohol dependence with withdrawal, uncomplicated Instructions: Alcoholism, Addiction Alcohol Follow-Up: Whit Kitchen ARNP [Primary Care Provider] - Forms: PCP List
[2024-06-04 14:40] VITALS: O2SAT 98
[2024-06-04 14:49] LABS: BASOPHILS # (AUTO) 0.1 10^3/uL (0.0-0.1); BASOPHILS % (AUTO) 0.8 %; EOSINOPHILS % (AUTO) 0.5 %; HCT - HEMATOCRIT 36.5 % (42.0-52.0); HGB - HEMOGLOBIN 11.4 g/dL (14.0-18.0); LYMPHOCYTES # (AUTO) 1.1 10^3/uL (1.5-3.5); MEAN CORPUSCULAR HEMOGLOBIN 20.5 pg (27.0-31.0); MEAN CORPUSCULAR HGB CONC 31.2 g/dL (32.0-36.0); MEAN CORPUSCULAR VOLUME 65.5 fL (80.0-94.0); MEAN PLATELET VOLUME 8.4 fL (7.4-11.4); MONOCYTES # (AUTO) 0.9 10^3/uL (0.0-1.0); MONOCYTES % (AUTO) 9.7 %; NEUTROPHILS # (AUTO) 6.7 10^3/uL (1.5-6.6); NEUTROPHILS % (AUTO) 76.1 %; NRBC ABSOLUTE COUNT (AUTO) 0.05 x10^3/uL; NUCLEATED RED BLOOD CELLS AUTO 0.6 /100WBC; PLT - PLATELET COUNT 231 10^3/uL (130-450); RED BLOOD COUNT 5.57 10^6/uL (4.70-6.10); RED CELL DISTRIBUTION WIDTH 17.2 % (12.0-15.0); SLIDE REVIEW? Indicated; WHITE BLOOD COUNT 8.8 x10^3/uL (4.8-10.8)
[2024-06-04 14:50] LABS: RBC MORPHOLOGY (MULTIPLE) 2+ MICROCYTOSIS (NORMAL)
[2024-06-04 15:03] LABS: ALBUMIN 4.4 g/dL (3.2-5.5); ALBUMIN/GLOBULIN RATIO 1.5 (1.0-2.2); ALKALINE PHOSPHATASE 98 IU/L (42-121); ALT ALANINE AMINOTRANSFERASE 45 IU/L (10-60); AST ASPARTATE AMINOTRANSFERASE 63 IU/L (10-42); BILIRUBIN,TOTAL 2.1 mg/dL (0.2-1.0); BUN - BLOOD UREA NITROGEN 16 mg/dL (6-20); CALCIUM 9.8 mg/dL (8.5-10.3); CARBON DIOXIDE - CO2 25 mmol/L (21-32); CHLORIDE 94 mmol/L (101-111); CREATININE 0.7 mg/dL (0.6-1.3); ETOH - ETHANOL < 10.0 mg/dL; GFR - MDRD 126 (>89); GLUCOSE 80 mg/dL (74-104); POTASSIUM 4.1 mmol/L (3.5-4.5); SODIUM 130 mmol/L (135-145); TOTAL PROTEIN 7.3 g/dL (6.4-8.9)
[2024-06-04] MEDS: SODIUM CHLORIDE 0.9% 1,000 ML IV STA (15:08)
[2024-06-04 16:00] LABS: B. PARAPERTUSSIS- RESP PCR PAN NOT DETECTED; B. PERTUSSIS- RESP PCR PANEL NOT DETECTED; C. PNEUMONIAE- RESP PCR PANEL NOT DETECTED; CORONAVIRUS 229E-RESP PCR NOT DETECTED; CORONAVIRUS HKU1-RESP PCR NOT DETECTED; CORONAVIRUS NL63-RESP PCR NOT DETECTED; CORONAVIRUS OC43-RESP PCR NOT DETECTED; HUMAN METAPNEUMOVIRUS NOT DETECTED; INFLUENZA A- RESP PCR PANEL NOT DETECTED; INFLUENZA B - RESP PCR PANEL NOT DETECTED; M. PNEUMONIAE- RESP PCR PANEL NOT DETECTED; PARAINFLUENZA VIRUS 1 NOT DETECTED; PARAINFLUENZA VIRUS 2 NOT DETECTED; PARAINFLUENZA VIRUS 3 NOT DETECTED; PARAINFLUENZA VIRUS 4 NOT DETECTED; RHINOVIRUS/ENTEROVIRUS NOT DETECTED; RSV- RESP PCR PANEL NOT DETECTED
[2024-06-04 16:01] LABS: SARS-CoV-2 -RESP PCR PANEL DETECTED
[2024-06-04] MEDS: LORazepam 1 MG TABLET PO STA (16:38)
[2024-06-04 16:58] VITALS: BP 128/86
== END 2024-06-04 16:46 | disposition home or self-care (01) ==
LOC: EDUNIT# → ED 14:19
DX: U07.1 COVID-19 (principal); F10.230 Alcohol dependence with withdrawal, uncomplicated; Y90.0 Blood alcohol level of less than 20 mg/100 ml; F17.200 Nicotine dependence, unspecified, uncomplicated; Z79.899 Other long term (current) drug therapy
CPT/HCPCS: 36415; 80053; 82077; 85025; 87633; 99283; 99284